=== PATIENT | female | born 1955 ===

== ENCOUNTER 2021-11-01 06:04 | Day surgery (SDC) | payer OTHER ==
[~2021-11-01 06:04] MED LIST: ADULT LOW DOSE81 M1 PO; ALTACE2.5 MG PO; EDLUAR10 MG SL; GLIPIZIDE-METF1 EAC1 PO; HUMIRA40 MG/0.2; SIMVASTATIN5 MG PO; SINGULAIR5 MG PO; SYNTHROID125 MCG PO
== END 2021-11-01 15:20 | disposition home or self-care (01) ==
LOC: CIR.AMB 06:04
PROVIDERS: ATTEND Surgery Surgery of the Hand
DX: M06.841 Other specified rheumatoid arthritis, right hand (principal); M24.444 Recurrent dislocation, right finger; Z20.822 Contact with and (suspected) exposure to COVID-19